=== PATIENT | male | born 1965 | race Caucasian/White ===

== ENCOUNTER → 2025-05-25 | Outpatient (CLI) | payer OTHER, SELFPAY ==
[2025-05-25 15:11] LABS: Sed Rate (ESR) 17 mm/hr (0-20)
[2025-05-25 15:30] LABS: C-Reactive Protein < 0.5 mg/dL (0.0-0.9)
[2025-05-25 15:41] LABS: Uric Acid 7.0 mg/dL (3.7-9.2)
[2025-05-25 15:56] LABS: RA Screen Negative (Negative)
[2025-06-01 06:58] LABS: ANA Screen, IFA NEGATIVE (NEGATIVE)
== END | disposition home or self-care (01) ==
PROVIDERS: PCP Family Medicine; Referring Provider Internal Medicine; Visit Provider Internal Medicine
DX: M25.50 Pain in unspecified joint (principal); Z83.2 Family history of diseases of the blood and blood-forming organs and certain disorders involving the immune mechanism
CPT/HCPCS: 36415; 84550; 85652; 86038; 86140; 86430

== ENCOUNTER 2025-08-17 07:10 | Day surgery (SDC) | payer OTHER, SELFPAY ==
[2025-08-16 12:30] VITALS: BMI 29.0
[2025-08-17] VITALS (8 sets, daily range): BP systolic 124–169; BP diastolic 84–104; PULSE 59–67; RESP 10–22; TEMP 36.3; O2SAT 92–98; BMI 29.9
[2025-08-17] MEDS: SODIUM CHLORIDE 0.9% 500 ML 500 ML 125 ML IV (08:14)
[2025-08-17] MEDS: MIDAZOLAM INJ 1 MG/ML VIAL 2 ML (ASD USE ONLY) 2 MG IVP (08:18)
[2025-08-17] MEDS: fentaNYL CIT INJ 50 mCg/ML AMP 2ML (ASD USE ONLY) IVP (08:18)
== END 2025-08-17 09:16 | disposition home or self-care (01) ==
PROVIDERS: Referring Provider Surgery; Visit Provider Surgery
PROC: 0DBE8ZX Excision of Large Intestine, Via Natural or Artificial Opening Endoscopic, Diagnostic (ICD-10-PCS; CPT 45380; principal; 2025-08-17 07:30)
DX: Z12.11 Encounter for screening for malignant neoplasm of colon (principal); D12.5 Benign neoplasm of sigmoid colon; K64.1 Second degree hemorrhoids; K57.30 Diverticulosis of large intestine without perforation or abscess without bleeding
CPT/HCPCS: 45385; A4649; J1200; J2250; J3010; J7999

== ENCOUNTER → 2025-09-18 | Outpatient (CLI) | payer OTHER, SELFPAY ==
--- NOTE | 2025-09-18 17:00 | XR_ITS ---
Examination: CT lung low dose screening, without contrast. 2-D sagittal reconstructions. 2-D coronal reconstructions. 3-D reconstructions. Date and time of exam: September 18, 2025, 1706 hours INDICATIONS: Smoking history 40 years, encounter for screening for malignant neoplasm of lung field, intermittent coughing, history pulmonary nodules CTDI: vol (mGy): 13.8 DLP: (mGycm): 514 Technique: Multiple 1.25 mm axial sections of the lung low dose screening have been obtained. 2-D sagittal and coronal reconstructions have been obtained. 3-D reconstructions have been obtained. Low dose protocols were performed. One or more of the following dose reduction techniques were used; automated exposure control, adjustment of the mA and/or KV according to patient size, use of iterative reconstruction technique. Findings: No thoracic aortic aneurysmal dilatation Pulmonary artery segments are not enlarged No mediastinal lymphadenopathy 2 mm pulmonary nodule left upper lobe image 126 2 mm pulmonary nodule left upper lobe image 133 3 mm pulmonary nodule right upper lobe image 133 2 mm pulmonary nodule lingular segment image 182 No pneumonia or pulmonary edema 8 mm right lobe liver cyst and multiple additional cysts, the largest 19 mm Contracted gallbladder Spleen is not enlarged No pancreatic or adrenal mass Kidneys partially visualized no hydronephrosis Moderate thoracic spondylosis IMPRESSION: Subcentimeter pulmonary nodules as above, probably benign Recommend continued 6-month follow-up CT chest without contrast
== END | disposition home or self-care (01) ==
LOC: CCTX 17:00
PROVIDERS: Referring Provider Nurse Practitioner Family; Visit Provider Nurse Practitioner Family
DX: Z12.2 Encounter for screening for malignant neoplasm of respiratory organs (principal); R91.8 Other nonspecific abnormal finding of lung field
CPT/HCPCS: 71271